=== PATIENT | female | born 1955 | race African-American/Black ===

== ENCOUNTER 2019-10-12 17:29 | Emergency (ER) | payer SELFPAY ==
[2019-10-12 17:36] VITALS: TEMP 97.9; BMI 27.3
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
[2019-10-12] MEDS ORDERED: LIDOCAINE 5% TOPICAL PATCH TP ONE (18:36)
[2019-10-12] MEDS ORDERED: ACETAMINOPHEN 325 MG TABLET (FP) PO ONE (18:36)
[2019-10-12] MEDS ORDERED: LIDOCAINE 5% TOPICAL PATCH ONE (18:39)
[2019-10-12] MEDS ORDERED: ACETAMINOPHEN 500 MG TABLET (FP) ONE (18:39)
[2019-10-12 20:11] VITALS: BP 151/75; PULSE 82
== END 2019-10-12 20:23 | disposition home or self-care (01) ==
LOC: JERFT 17:29
DX: S13.4XXA Sprain of ligaments of cervical spine, initial encounter (principal); V78.4XXA Person boarding or alighting from bus injured in noncollision transport accident, initial encounter; Y92.414 Local residential or business street as the place of occurrence of the external cause; Y93.89 Activity, other specified; Y99.8 Other external cause status; I10 Essential (primary) hypertension
CPT/HCPCS: 70450-TC; 72125-TC; 73030-TC-LT-FY; 73060-TC-LT-FY; 99284-25

== ENCOUNTER 2022-05-20 15:57 | Emergency (ER) | payer OTHER ==
[2022-05-20 16:55] VITALS: BP 131/74; PULSE 81; RESP 20; TEMP 98.1; BMI 25.8
[2022-05-20] MEDS ORDERED: ACETAMINOPHEN 1000 MG/100 ML BAG IVPB ONE (17:33)
[2022-05-20] MEDS ORDERED: ACETAMINOPHEN INJECTION 100 ML IVPB ONE (18:32)
[2022-05-20 19:06] LABS: HEMATOCRIT 37.4 % (32.4-45.2); HEMOGLOBIN 11.8 GM/dL (10.7-15.3); MCH 21.5 pg (25.7-33.7); MCHC 31.5 g/dl (32.0-36.0); MEAN CELL VOLUME 68.3 fl (80-96); MEAN PLT VOLUME 8.4 fl (7.5-11.1); PLATELET COUNT 505 10^3/uL (134-434); RBC 5.48 M/mm3 (3.60-5.2); RDW 14.5 % (11.6-15.6); WHITE BLOOD COUNT 6.9 K/mm3 (4.0-10.0)
[2022-05-20 19:26] LABS: ALBUMIN 3.9 g/dl (3.4-5.0); CALCIUM 9.9 mg/dL (8.5-10.1)
[2022-05-20 19:27] LABS: BLOOD UREA NITROGEN 19.8 mg/dL (7-18)
[2022-05-20 19:29] LABS: CREATININE 0.7 mg/dL (0.55-1.3)
[2022-05-20 19:31] LABS: BILIRUBIN,TOTAL 0.2 mg/dL (0.2-1); TOT PROT 7.6 g/dl (6.4-8.2)
== END 2022-05-20 21:00 | disposition home or self-care (01) ==
LOC: JER 15:57
PROC: 3E0333Z Introduction of Anti-inflammatory into Peripheral Vein, Percutaneous Approach (ICD-10-PCS; principal; 2022-05-20)
DX: S09.90XA Unspecified injury of head, initial encounter (principal); W01.0XXA Fall on same level from slipping, tripping and stumbling without subsequent striking against object, initial encounter
CPT/HCPCS: 36415; 70450-TC; 71045-TC-FY; 72125-TC; 73070-TC-LT-FY; 73110-TC-LT-FY; 73130-TC-LT-FY; 80053; 84443; 84484; 85027; 93005; 93010; 99285-25